=== PATIENT | female | born 1935 | race African-American/Black ===

== ENCOUNTER 2016-04-18 16:39 | Emergency (ER) | payer OTHER, MEDICARE, MEDICAID ==
[~2016-04-18] VITALS: Ht 160 cm; Wt 94.8 kg
[~2016-04-18 16:39] MED LIST: ASPI81TA2 PO; ATOR40TA PO; BUPR150T15 PO; CALC-45 PO; CHOL20004 PO; GLIP10TA PO; INSU100V3 SQ; LOSA1TAB12 PO; OMEG300C PO
[2016-04-18 17:36] VITALS: BP 170/74
[2016-04-18] MEDS ORDERED: ACETAMINOPHEN 500 MG TABLET PO ONE (18:00)
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
--- NOTE | 2016-04-19 08:39 | RAD ---
Left knee, 3 views, 04/18/2016: History: Knee pain, injury There is narrowing of the lateral compartment of the knee joint with moderate marginal spurring and chronic appearing irregularity of the articular surfaces. There is moderate degenerative change at the patellofemoral articulation. No acute fracture or dislocation is identified. There is subcutaneous edema along the anterior aspect of the knee. There are scattered phleboliths and arterial calcifications in the soft tissues. IMPRESSION: 1. Moderately severe degenerative change at the left knee with dominant involvement of the lateral compartment. 2. No acute bony abnormality is detected.
== END 2016-04-18 19:39 | disposition home or self-care (01) ==
LOC: ER 16:39
DX: M25.562 Pain in left knee (principal); E11.9 Type 2 diabetes mellitus without complications; E78.00 Pure hypercholesterolemia, unspecified; F32.9 Major depressive disorder, single episode, unspecified; I10 Essential (primary) hypertension; V49.49XA Driver injured in collision with other motor vehicles in traffic accident, initial encounter; Y93.89 Activity, other specified; Y92.89 Other specified places as the place of occurrence of the external cause; Y99.8 Other external cause status
CPT/HCPCS: 73562; 99284-25

== ENCOUNTER 2016-06-11 18:24 | Emergency (ER) | payer MEDICARE, MEDICAID ==
[~2016-06-11] VITALS: Ht 160 cm; Wt 94.3 kg
--- NOTE | 2016-06-11 19:37 | PHYS DOC ---
Past Medical History Past Medical History: Arthritis, Depression, Diabetes-Type II, High Cholesterol , Hypertension Additional Past Medical Histor: THYROID DZ Past Surgical History: No Surgical History Alcohol Use: None Drug Use: None Adult General Chief Complaint Chief Complaint: COUGH HPI HPI Patient is a 80 year old female who presents with cough and rhinorrhea for 5 days. Symptoms are constant. She is concerned she has pneumonia. She denies nasal congestion, sore throat, chest pain, dyspnea, hemoptysis, leg pain or swelling, abd pain, n/v, f/c. Review of Systems Review of Systems Constitutional: Denies fever or chills [] Eyes: Denies change in visual acuity, redness, or eye pain [] HENT: Denies nasal congestion or sore throat [] Respiratory: Denies shortness of breath [] Cardiovascular: No additional information not addressed in HPI [] GI: Denies abdominal pain, nausea, vomiting, bloody stools or diarrhea [] : Denies dysuria or hematuria [] Musculoskeletal: Denies back pain or joint pain [] Integument: Denies rash or skin lesions [] Neurologic: Denies headache, focal weakness or sensory changes [] Endocrine: Denies polyuria or polydipsia [] Allergies Allergies Allergies Coded Allergies Type Severity Reaction Last Updated Verified No Known Allergies Allergy Unknown 06/29/14 Yes Physical Exam Physical Exam Constitutional: Well developed, well nourished, no acute distress, non-toxic appearance. [] HENT: Normocephalic, atraumatic, bilateral external ears normal, oropharynx moist, no oral exudates, nose normal. [] Eyes: PERRLA, EOMI, conjunctiva normal, no discharge. [] Neck: Normal range of motion, no tenderness, supple, no stridor. [] Cardiovascular:Heart rate regular rhythm [] Lungs & Thorax: Bilateral breath sounds clear to auscultation [] Abdomen: Bowel sounds normal, soft, no tenderness. [] Skin: Warm, dry, no erythema, no rash. [] Back: Normal ROM. [] Extremities: No tenderness, ROM intact, no edema. [] Neurologic: Alert and oriented X 3, normal motor function, normal sensory function, no focal deficits noted. [] Psychologic: Affect normal, judgement normal, mood normal. [] Current Patient Data Vital Signs Vital Signs Date Time Temp Pulse Resp B/P Pulse Ox O2 Delivery O2 Flow Rate FiO2 06/11/16 20:00 57 18 146/72 100 Room Air 06/11/16 18:52 98.2 98.2 Radiology/Procedures Radiology/Procedures Chest xray as interpreted by me with no acute cardiopulmonary disease process Course & Med Decision Making Course & Med Decision Making Pertinent Labs and Imaging studies reviewed. (See chart for details) Discussed symptomatic care. Return precautions given. She understands and agrees with plan. Dragon Disclaimer Dragon Disclaimer This electronic medical record was generated, in whole or in part, using a voice recognition dictation system. Departure Departure Impression: Primary Impression: Upper respiratory infection Disposition: HOME, SELF-CARE Condition: STABLE Referrals: ASIM LÓPEZ MD (PCP) Patient Instructions: Upper Respiratory Infection, Adult, [id number] Additional Instructions: Use honey as needed for cough. Follow-up with your primary care doctor within one week. Return for any concerns. Problem Qualifiers Primary Impression: Upper respiratory infection URI type: unspecified viral URI Qualified Code: J06.9 - Acute upper respiratory infection, unspecified Link WYLIE MD Jun 11, 2016 19:37
[2016-06-11 20:00] VITALS: BP 146/72
--- NOTE | 2016-06-12 08:24 | RAD ---
Exam performed: One view chest. Indication: cough Date of Service: 06/11/2016 9:14 PM Comparison: 06/21/13. Single AP upright portable view chest findings: Cardiomediastinal silhouette is within limits of normal. No acute infiltrates, effusion or pneumothorax is detected. The bony structures are normal. Impression: No acute cardiopulmonary process is detected.
== END 2016-06-11 20:00 | disposition home or self-care (01) ==
LOC: ER 18:24
DX: J06.9 Acute upper respiratory infection, unspecified (principal); M19.90 Unspecified osteoarthritis, unspecified site; E11.9 Type 2 diabetes mellitus without complications; E78.00 Pure hypercholesterolemia, unspecified; I10 Essential (primary) hypertension
CPT/HCPCS: 71020; 99284

== ENCOUNTER → 2016-08-06 | Outpatient (CLI) | payer MEDICARE, MEDICAID ==
--- NOTE | 2016-08-06 15:47 | RAD ---
Right ankle ultrasound, 08/06/2016: History: Palpable nodule The area of clinical concern along the medial aspect of the right ankle was carefully scanned. No cystic or solid mass is seen. MR scanning may be considered for further evaluation, if clinically indicated.
== END | disposition home or self-care (01) ==
LOC: US 14:47
PROVIDERS: ATTEND Podiatrist Foot & Ankle Surgery
DX: M79.604 Pain in right leg (principal)
CPT/HCPCS: 76881

== ENCOUNTER → 2016-08-27 | Outpatient (CLI) | payer MEDICARE, MEDICAID ==
--- NOTE | 2016-08-27 17:17 | KCIC ---
SUBCUTANEOUS EDEMA AROUND THE ANKLE PARTICULARLY MEDIALLY AND LATERALLY. PROCEDURE MR of the right ankle HISTORY Right ankle pain since last year. Pain laterally. TECHNIQUE Routine multiplanar sequences are obtained. COMPARISON None FINDINGS Peroneal tendons are intact. High-grade tear of anterior talofibular ligament. At least partial tearing of calcaneofibular ligament. Sprain of the posterior talofibular ligament. Anterior inferior tibiofibular ligament is intact. Posterior tibial and flexor tendons are intact. Medial deltoid ligament fibers demonstrate sprain or scarring. Anterior tibial and extensor tendons are intact. Achilles tendon intact. No acute plantar fasciitis. Subtalar joints are patent. Tarsal sinus is intact. Talar dome is intact. No bone lesion or acute fracture. No significant joint effusion. Soft tissue edema at the medial and lateral ankle. Barely visualized tarsometatarsal joints demonstrates some mild subchondral cystic change likely degenerative. Minimal cystic change of the calcaneus along the floor of the tarsal sinus, has a benign appearance. IMPRESSION 1. Lateral ankle ligament injuries including anterior talofibular and calcaneofibular ligament tears, and posterior talofibular ligament sprain. 2. Deltoid ligament sprain/scarring. Electronically signed by: Esdras Vincent MD (August 27, 2016 17:16:15)
== END | disposition home or self-care (01) ==
LOC: KCIC MRI 15:58
PROVIDERS: ATTEND Internal Medicine
DX: M25.571 Pain in right ankle and joints of right foot (principal)
CPT/HCPCS: 73721

== ENCOUNTER 2021-08-29 11:47 | Emergency (ER) | payer OTHER, MEDICARE, MEDICAID ==
[~2021-08-29] VITALS: Ht 160 cm; Wt 70.3 kg
[~2021-08-29 11:47] MED LIST changes: +ASPI-630 PO; -ASPI81TA2 PO; -CHOL20004 PO; +CHOL200074 PO
[2021-08-29] MEDS ORDERED: ACETAMINOPHEN 325 MG TABLET. PO ONE (12:30)
--- NOTE | 2021-08-29 13:07 | RAD ---
CT HEAD AND C-SPINE WO History: Pain. Hit head on metal pole 2 days ago. Comparison: None. Technique: Noncontrast CT of the head and cervical spine. Findings: CT HEAD: There is no evidence for intracranial mass or hemorrhage. There is no hydrocephalus or midline shift. No abnormal extra-axial fluid collections are present. No evidence of acute territorial infarction. The visualized paranasal sinuses and mastoid air cells are clear. The skull and scalp are within normal limits. CT CERVICAL SPINE: There is no evidence for fracture in the cervical spine. Alignment is normal. Multilevel degenerative disease in the cervical spine with disc space narrowing greatest from C5-C7. Multilevel uncovertebral hypertrophy and degenerative facet disease. No destructive osseous lesions are seen. Limited evaluation of the soft tissues of the neck and of the upper chest is unremarkable. Impression: 1. No acute intracranial findings. 2. No acute osseous abnormality in the cervical spine. ------- Exposure: One or more of the following individualized dose reduction techniques were utilized for thi s examination: 1. Automated exposure control 2. Adjustment of the mA and/or kV according to patient size 3. Use of iterative reconstruction technique. Electronically signed by: Chucho Duran MD (08/29/2021 1:05 PM) [id number]
[2021-08-29 14:14] VITALS: BP 182/79
--- NOTE | 2021-08-29 14:34 | PHYS DOC ---
Past Medical History Past Medical History: Arthritis, Depression, Diabetes-Type II, High Missy sterol, Hypertension Additional Past Medical Histor: THYROID DZ, gout, Past Surgical History: No Surgical History Smoking Status: Never Smoker Alcohol Use: None Drug Use: None General Adult EDM: Chief Complaint: HEAD INJURY/TRAUMA HPI: HPI: Patient is a 85 year old female who presents with headache after sustaining a head injury 2 days ago. Patient states she was traveling by car with her niece. She went into a gas station to use the bathroom and slipped when she was getting up from the toilet, hitting her head on a metal pipe that was on the wall behind the toilet. Patient denies any loss of consciousness or other injury. She states that yesterday, she felt fine, but she woke up this morning with a headache that was not affected by a dose of Aleve. Patient has no other complaints at this time Review of Systems: Review of Systems: Constitutional: Denies fever, chills or generalized weakness Eyes: Denies change in visual acuity, visual field deficits or discharge HENT: Denies ear pain, nasal congestion or sore throat Respiratory: Denies cough or shortness of breath Cardiovascular: Denies chest pain, palpitations or edema GI: Denies abdominal pain, nausea, vomiting, bloody stools or diarrhea : Denies dysuria or hematuria Musculoskeletal: Denies back pain or joint pain Integument: Denies rash or other skin lesion Neurologic: Denies focal weakness or sensory changes, reports headache. Heart Score: C/O Chest Pain: No Current Medications: Current Medications Medications (Trade) Dose Ordered Sig/[facility] Start Time Stop Time Status Last Admin Dose Admin Acetaminophen (Tylenol) 650 mg 1X ONCE 08/29/21 12:30 08/29/21 12:31 DC 08/29/21 12:59 650 MG Allergies: Allergies: Allergies Coded Allergies Type Severity Reaction Last Updated Verified No Known Allergies Allergy Unknown 06/29/14 Yes Physical Exam: PE: Constitutional: Well developed, well nourished, no acute distress, non-toxic appearance. HENT: Normocephalic, atraumatic, bilateral external ears normal, nose normal. Eyes: PERRL, EOMI, conjunctiva normal, no discharge. Neck: Normal range of motion, no tenderness, no stridor. Cardiovascular: Regular heart rate, regular rhythm. Lungs & Thorax: Equal thoracic expansion, no increased work of breathing. Skin: Warm, dry, no erythema, no rash. Extremities: No tenderness, no cyanosis, no clubbing, active and passive ROM intact, nonpitting edema bilateral ankles, capillary refill less than 2 seconds. Neurologic: Alert and oriented, normal motor function, normal sensory function, no focal deficits noted. Current Patient Data: Vital Signs: Vital Signs Date Time Temp Pulse Resp B/P (MAP) Pulse Ox O2 Delivery O2 Flow Rate FiO2 08/29/21 14:14 80 20 182/79 (113) 98 Room Air 08/29/21 13:13 80 16 198/95 (129) 97 Room Air 08/29/21 12:12 98.8 84 20 189/83 (118) 99 Room Air 98.8 Radiology/Procedures: Radiology/Procedures: PROCEDURE: CT HEAD AND CERVICAL SPINE WO CT HEAD AND C-SPINE WO History: Pain. Hit head on metal pole 2 days ago. Comparison: None. Technique: Noncontrast CT of the head and cervical spine. Findings: CT HEAD: There is no evidence for intracranial mass or hemorrhage. There is no hydrocephalus or midline shift. No abnormal extra-axial fluid collections are present. No evidence of acute territorial infarction. The visualized paranasal sinuses and mastoid air cells are clear. The skull and scalp are within normal limits. CT CERVICAL SPINE: There is no evidence for fracture in the cervical spine. Alignment is normal. Multilevel degenerative disease in the cervical spine with disc space narrowing greatest from C5-C7. Multilevel uncovertebral hypertrophy and degenerative facet disease. No destructive osseous lesions are seen. Limited evaluation of the soft tissues of the neck and of the upper chest is unremarkable. Impression: 1. No acute intracranial findings. 2. No acute osseous abnormality in the cervical spine. ------- Exposure: One or more of the following individualized dose reduction techniques were utilized for this examination: 1. Automated exposure control 2. Adjustment of the mA and/or kV according to patient size 3. Use of iterative reconstruction technique. Electronically signed by: Chucho Duran MD (08/29/2021 1:05 PM) [id number] Course & Med Decision Making: Course & Med Decision Making Pertinent Labs and Imaging studies reviewed. (See chart for details) Patient is an 85-year-old female who sustained a head injury 2 days ago and now has headache. CT head and neck plain obtained. Additionally, patient was provided with a dose of Tylenol for headache. On reevaluation, she states her pain is improved, but she is requesting x-rays of her legs and feet." Patient states that over the past several months, she has noted some swelling in her bilateral lower extremities, which she states is now better than it has been. However, she is concerned because she does still have pain. I long discussion with her about the use of compression socks and elevation to avoid peripheral edema. Additionally, I suggested that she follow- up with her automotive general sales manager regarding prolonged and persistent peripheral edema. She states she has been evaluated by her automotive general sales manager for this issue in the past , and she was told that it "might not ever get better." At this time, there is no evidence of vascular compromise, so she should follow-up outpatient with her automotive general sales manager. All the questions patient's were answered. Return precautions are provided. Patient understands and is agreeable to discharge plan. She states she is ready to go home and is "tired of laying here." Luca Disclaimer: Luca Disclaimer: This electronic medical record was generated, in whole or in part, using a voice recognition dictation system. Departure Departure Impression: Primary Impression: Contusion of occipital region of scalp Qualified Codes: S00.03XA - Contusion of scalp, initial encounter Additional Impression: Swelling of both lower extremities Disposition: 01 HOME / SELF CARE / HOMELESS Condition: STABLE Referrals: ASIM LÓPEZ MD (PCP) Patient Instructions: Edema, [id number], Facial or Scalp Contusion, Eas y-to-Read Additional Instructions: EMERGENCY DEPARTMENT GENERAL DISCHARGE INSTRUCTIONS Thank you for coming to [facility] Emergency Department (ED) today and trusting us with you care. We trust that you had a positive experience in our Emergency Department. If you wish to speak to the department management, you may call the director at . YOUR FOLLOW UP INSTRUCTIONS ARE FOLLOWS: 1. Follow up with your primary care doctor. If you do not have a primary doctor, please ask for a resource list of physicians or clinics that may be able to assist you with follow up care. 2. The emergency provider has interpreted your imaging studies, if any were ordered. The radiology medical front desk specialist also reviewed them. If there is a change in the findings, you will be notified in 48 hours when at all possible. 3. If a lab test or culture has been done, your results will be reviewed and you will be notified if you need a change in treatment. 4. Follow instructions verbalized to you and refer to the printouts if needed. ADDITIONAL INSTRUCTIONS AND INFORMATION: 1. Your care today has been supervised by a physician who is specially trained in emergency care. Many problems require more than one evaluation for a comple te diagnosis and treatment. We recommend that you schedule your follow up appointment as recommended to ensure complete treatment of you illness or injury. If you are unable to obtain follow up care and continue to have a problem, or if your condition worsens, we recommend that you return to the ED. 2. We are not able to safely determine your condition over the phone nor are we able to give sound medical advice over the phone. For these safety reasons, if you call for medical advice we will ask you to come to the ED for further evaluation. 3. If you have any questions regarding these discharge instructions please call the ED at . SAFETY INFORMATION: In the interest of safety, wellness, and injury prevention; we encourage you to wear your seat belt, if you smoke; quite smoking, and we encourage family to use a protective helmet for bicycling and other sporting events that present an increased risk for head injury. IF YOUR SYMPTOMS WORSEN OR NEW SYMPTOMS DEVELOP, OR YOU HAVE CONCERNS ABOUT YOUR CONDITION; OR IF YOUR CONDITION WORSENS WHILE YOU ARE WAITING FOR YOUR FOLLOW UP APPOINTMENT; EITHER CONTACT YOUR PRIMARY CARE DOCTOR, THE PHYSICIAN WHOSE NAME AND NUMBER YOU WERE GIVEN, OR RETURN TO THE ED IMMEDIATELY. EPIFANIO PADILLA August 29, 2021 14:34
== END 2021-08-29 15:00 | disposition home or self-care (01) ==
LOC: ER 11:47
DX: S00.03XA Contusion of scalp, initial encounter (principal); R51.9 Headache, unspecified; E11.9 Type 2 diabetes mellitus without complications; E78.00 Pure hypercholesterolemia, unspecified; I10 Essential (primary) hypertension; M10.9 Gout, unspecified; W01.198A Fall on same level from slipping, tripping and stumbling with subsequent striking against other object, initial encounter; Y93.89 Activity, other specified; Y92.89 Other specified places as the place of occurrence of the external cause; Y99.8 Other external cause status
CPT/HCPCS: 70450; 72125; 99284-25